=== PATIENT | female | born 1995 | race Two or more races ===

== ENCOUNTER 2024-06-02 18:21 | Emergency (ER) | payer OTHER ==
[~2024-06-02] VITALS: Ht 152.4 cm; Wt 80.7 kg
[~2024-06-02 18:21] MED LIST: CLEOCIN HCL75 MG PO; CLINDAMYCIN HC150 MG PO
[2024-06-02] MEDS ORDERED: FAMOTIDINE/PF 20 MG in 0.9 % SODIUM CHLORIDE 8 ML IV PUSH STA (20:01)
[2024-06-02] MEDS ORDERED: ONDANSETRON HCL 2 MG/ML VIAL IV ONE (20:15)
[2024-06-02] MEDS ORDERED: 0.9 % SODIUM CHLORIDE 1,000 ML IV SCH (20:15)
[2024-06-02] MEDS ORDERED: DIPHENOXYLATE HCL/ATROPINE 1 UDTAB TABLET PO ONE (20:15)
[2024-06-02] MEDS ORDERED: ONDANSETRON HCL 2 MG/ML VIAL ONE ×2 (20:20)
[2024-06-02 20:50] LABS: HEMATOCRIT 38.7 % (36.0-45.00); MEAN CELL VOLUME 91.4 fL (80.00-100.00); MEAN CORPUSCULAR HEMOGLOBIN 30.7 pg (27.00-32.0); MEAN CORPUSCULAR HGB CONC 33.6 g/dl (32.0-36.0); PLATELET COUNT 253 K/uL (150-450); RED BLOOD COUNT 4.24 M/uL (4.00-6.00); RED CELL DISTRIBUTION WIDTH 12.8 % (11.5-14.5)
[2024-06-02 21:13] LABS: ALBUMIN 3.7 gm/dL (3.4-5.0); BILIRUBIN TOTAL 0.77 mg/dL (0.3-1.2); CALCIUM 9.1 mg/dL (8.5-10.1); CREATININE SERUM 0.83 mg/dL (0.55-1.02); GFR 83.1; GLOBULINA 4.5 G/DL (2.4-3.5); POTASSIUM 3.78 mEq/L (3.5-5.1); TOTAL PROTEIN 8.2 gm/dL (6.4-8.2)
[2024-06-02] MEDS ORDERED: PEPCID AC20 MG PO (22:18)
[2024-06-02] MEDS ORDERED: ZOFRAN8 MG PO (22:18)
== END 2024-06-02 22:31 | disposition home or self-care (01) ==
LOC: ER 18:22
PROVIDERS: General Practice
DX: R11.2 Nausea with vomiting, unspecified (principal); K29.70 Gastritis, unspecified, without bleeding; Z91.013 Allergy to seafood